=== PATIENT | female | born 1960 | race African-American/Black ===

== ENCOUNTER → 2016-08-04 | Outpatient (CLI) | payer BC ==
[~2016-08-04] MED LIST: AMOXICILLIN500 M1 PO; BAYER ASPIRIN325 M1 PO; HCTZ PO; METOPROLOL SUC100 MG PO; PERCOCET 5/321 UDTAB PO; PHENERGAN25 M1 PO; TOPROL XL PO
--- NOTE | ~2016-08-04 | US77 ---
[facility] A Service [facility] RADIOLOGY TEXT RESULTS PATIENT: FREDRICK ROUSSEAU LOCATION: [place] : [birth year] UNIT #: [id number] AGE: [address]: Luisa Pires APRN SEX: F ORDER DR: [id number] [address] [address] [id number] O MR#: [id number] Acc #: [id number] NAME: FREDRICK ROUSSEAU : 1960 SEX: F STUDY DATE/TIME: 08/04/2016 11:10 UNIT: [facility] ROOM: STUDY DESCRIPTION: US Kidney Bilateral Complete Attending Physician: Luisa Pires A.P.R.N. Referring Physician: Luisa Pires A.P.R.N. Ordering Physician: Luisa Pires A.P.R.N. Primary Care Physician: Pritesh Reyes M.D. MEDICAL IMAGING REPORT This report is preliminary unless electronic signature is present. EXAM Bilateral renal ultrasound INDICATIONS Benign essential hypertension. Lesions in kidneys demonstrated on an outside MRI. TECHNIQUE Lo-scale imaging of the kidneys and urinary bladder was performed. COMPARISON No comparisons. FINDINGS Right kidney measures 11.7 cm in length. The left kidney measures 10 cm in length. Renal cortical thickness and echogenicity is normal. There are cysts within both kidneys. There appears to be a thin septation in the largest cyst on the right. This cyst measures about 4.3 cm in greatest dimension. There are also cysts within the left kidney. The largest on the left measures about 2.8 cm in greatest dimension and also contains a septation. No hydronephrosis. Survey view of the urinary bladder is unremarkable. IMPRESSION Bilateral renal cysts. Dictated by... Александр Ray M.D. THIS IS AN ELECTRONICALLY VERIFIED REPORT Александр Ray M.D. at 08/04/2016 9:52 PM ARS/cs [facility] A Service of [facility] RADIOLOGY TEXT RESULTS PATIENT: FREDRICK ROUSSEAU LOCATION: [facility] ACC #: [id number] : [birth year] UNIT #: [id number] AGE: [address]: Luisa Pires APRN SEX: F ORDER DR: TD: 08/04/2016 21:14 JOB #: [id number] MEDICAL IMAGING REPORT Page 1 of 1
== END | disposition home or self-care (01) ==
LOC: SGUS 10:20
DX: I10 Essential (primary) hypertension (principal); N28.1 Cyst of kidney, acquired
CPT/HCPCS: 76775

== ENCOUNTER 2016-10-27 18:10 | Inpatient (IN) | payer BC ==
--- NOTE | ~2016-10-27 | CO ---
Unit #: [id number] #: [id number] Patient: FREDRICK ROUSSEAU [id number] [facility] [address] [facility]. [place], [place] [address] [id number] I MR#: [id number] NAME: FREDRICK ROUSSEAU ROOM: 450 Age: 56 Sex: F Admission Date: 10/28/2016 : 1960 Attending Physician: Louie Mcgill M.D. Primary Care Physician: Pritesh Reyes M.D. Consultation Date: 10/28/2016 CONSULTATION REPORT CHIEF COMPLAINT Left ankle pain and swelling. HISTORY OF PRESENT ILLNESS Ms. Rousseau is a very pleasant 56-year-old female, who was stepping out of her trailer, twisted her ankle, had immediate pain and deformity, was unable to bear weight. She presented to [facility] Emergency Room where x-rays were obtained. She was diagnosed with a left trimalleolar ankle fracture dislocation. She had a closed reduction performed. It was splinted and she was transferred to [facility] for definitive management. PAST MEDICAL HISTORY Hypertension. HOME MEDICATIONS Toprol. ALLERGIES No known drug allergies. SOCIAL HISTORY She drinks occasional alcohol. Denies smoking or illicit drug use. FAMILY HISTORY Reviewed and noncontributory. PAST SURGICAL HISTORY Negative. REVIEW OF SYSTEMS All 12 systems are reviewed and were negative with the exception of left ankle pain and swelling. PHYSICAL EXAMINATION GENERAL: Shows a pleasant -[place] female who appears stated age. She is in no acute distress. EXTREMITIES: Left lower extremity is splinted. HEENT: Normocephalic and atraumatic. Extraocular movements intact. Trachea is midline. HEART: Regular rate and rhythm. ABDOMEN: Soft, nontender, nondistended. EXTREMITIES: Demonstrate left lower extremity splint is well fitting. She is able to wiggle her toes but with some pain. She has brisk Unit #: [id number] #: [id number] Patient: FREDRICK ROUSSEAU capillary refill distally. Toes are warm to touch. Unable to visualize the skin of the ankles secondary to the splint. DIAGNOSTIC STUDIES IMAGING: Review of x-rays: Both pre and post reduction images were reviewed which shows a left trimalleolar ankle fracture that involves a [place] C lateral malleolus ankle fracture. The mortise is still subluxed. She also has a fracture of the anterior aspect of the tibia at the connection point of the anterior talofibular ligament. Also, she has a small posterior malleolar ankle fracture. The medial malleolus is intact. IMPRESSION Left trimalleolar ankle fracture dislocation, status post closed reduction by emergency room. PLAN I have recommended open induction internal fixation. Risks and benefits were discussed in detail. Risks of infection, deep venous thrombosis, pulmonary embolism, , fracture malunion/nonunion, painful hardware, need for hardware removal, persistent pain. She understood and wished to proceed. She understood that medicine is not exact science and the outcome may be less than desirable. She voiced understanding and she will sign the consent as documentation of our discussion. All questions were answered to her satisfaction. Will proceed with surgery later this morning as discussed for open reduction internal fixation of left ankle. Dictated by... Latoya Melton/josephine TD: 10/29/2016 12:44 JOB #: [id number] CONSULTATION REPORT Page 1 of 1 X Geovanny Warren MD X CONSULTATION REPORT
--- NOTE | ~2016-10-27 | CR20 ---
[facility] A Service of [facility] & [facility] RADIOLOGY TEXT RESULTS PATIENT: FREDRICK ROUSSEAU LOCATION: [place] [address] : [birth year] UNIT #: [id number] AGE: [address]: Louie Mcgill MD SEX: F ORDER DR: [id number] [address] [address] [id number] I MR#: [id number] Acc #: [id number] NAME: FREDRICK ROUSSEAU : 1960 SEX: F STUDY DATE/TIME: 10/27/2016 20:23 UNIT: SEDOF ROOM: [facility] STUDY DESCRIPTION: CR Ankle Min 3 Views Lt Attending Physician: Barbara Hernandez M.D. Ordering Physician: Tyrone Naidu M.D. Primary Care Physician: Pritesh Reyes M.D. MEDICAL IMAGING REPORT This report is preliminary unless electronic signature is present. EXAM 3 views of the left ankle COMPARISON 3 views of the left ankle on the same date at 06:30 p.m. INDICATIONS 56-year-old female status post closed reduction of right ankle fracture. Patient has right ankle pain after stepping off of a trailer today. FINDINGS Detailed evaluation of bony structures is limited by overlapping cast material. Mildly comminuted fracture of the distal fibula is again noted with mild lateral displacement of the distal fragment. There is also widening of the tibiofibular syndesmosis and the ankle mortise, suggesting an unstable injury. There is a questionable avulsion fracture from the lateral aspect of the distal tibia at the syndesmosis. There is no dislocation. IMPRESSION Improved alignment of comminuted distal fibular fracture post closed reduction. There is still minimal lateral displacement of the distal fibula, and there is persistent ankle mortise widening that has improved from earlier today, and there is abnormal diastases at the tibiofibular syndesmosis with questionable avulsed fracture fragment from the distal tibia at the level of the syndesmosis. This reflects unstable injury. Orthopedic consultation is recommended. No ankle dislocation. Dictated by... Martínez Brice M.D. THIS IS AN ELECTRONICALLY VERIFIED REPORT [facility] A Service of [facility] & [facility] RADIOLOGY TEXT RESULTS PATIENT: FREDRICK ROUSSEAU LOCATION: [facility] 450-01 : [birth year] UNIT #: [id number] AGE: [address]: Louie Mcgill MD SEX: F ORDER DR: Martínez Brice M.D. at 11/02/2016 10:29 AM GILMAR/paula TD: 10/28/2016 11:37 JOB #: [id number] MEDICAL IMAGING REPORT Page 1 of 1
--- NOTE | ~2016-10-27 | DS ---
Unit #: [id number] #: [id number] Patient: FREDRICK ROUSSEAU [id number] [address] [address] [id number] I MR#: [id number] NAME: FREDRICK ROUSSEAU ROOM: [facility] Age: 56 Sex: F Admission Date: 10/27/2016 : 1960 Discharge Date: 10/29/2016 Attending Physician: Louie Mcgill M.D. Primary Care Physician: Pritesh Reyes M.D. DISCHARGE SUMMARY HISTORY OF PRESENT ILLNESS Please H and P for details, initial part of hospital course. Consultation was placed to orthopedic services. Dr. Quijano saw and evaluated patient. Patient was taken to the OR. Please see their operative note for complete details. The patient underwent open reduction internal fixation of left trimalleolar ankle fracture. There were no acute complications which was noted. Postoperatively, she has otherwise done well. She will be given a prescription for Percocet 5/325 one to two tablets p.o. q.4 p.r.n. #56. She will also be instructed to resume her blood pressure medication at time of discharge. She will follow up with Dr. Warren in one to two weeks. Recommendation was also made for aspirin 325 mg p.o. daily. FINAL DISCHARGE DIAGNOSES 1. Left ankle fracture, status post open reduction internal fixation. 2. Hypertension. DISCHARGE MEDICATIONS 1. Percocet 5/325 one to two tablets p.o. q.4 p.r.n. 2. Toprol XL 50 mg p.o. daily. 3. Aspirin 325 mg p.o. daily. DISCHARGE CONDITION Stable. DISCHARGE DISPOSITION Home. FOLLOWUP Followup orthopedic services in one to two weeks. Dictated by... Latoya Burgess/josephine TD: 10/31/2016 15:55 JOB #: [id number] Unit #: [id number] #: [id number] Patient: FREDRICK ROUSSEAU DISCHARGE SUMMARY Page 1 of 1 X Louie Mcgill MD X DISCHARGE SUMMARY
--- NOTE | ~2016-10-27 | DS ---
Unit #: [id number] #: [id number] Patient: FREDRICK ROUSSEAU [id number] [address] [address] [id number] I MR#: [id number] NAME: FREDRICK ROUSSEAU ROOM: 450 Age: 56 Sex: F Admission Date: 10/28/2016 : 1960 Discharge Date: 10/29/2016 Attending Physician: Louie Mcgill M.D. Primary Care Physician: Pritesh Reyes M.D. DISCHARGE SUMMARY DISCHARGE DIAGNOSIS Left trimalleolar ankle fracture dislocation. PROCEDURES Open reduction and internal fixation of left ankle fracture on 10/28/2016. INDICATION FOR ADMISSION Miss Rousseau is a very pleasant 56-year-old female who has sustained a left trimalleolar ankle fracture dislocation while stepping out of her trailer. She was initially seen at [facility] where a closed reduction was performed. She was transferred to [facility] for further workup and treatment. She underwent open reduction and internal fixation on 10/28/[address] Geovanny Warren. She tolerated the procedure well. Physical Therapy was consulted. Pending clearance from Physical Therapy today she will be discharged home. DISCHARGE INSTRUCTIONS 1. Nonweightbearing left lower extremity. 2. Use assistive device as needed. 3. Elevate the extremity. 4. Keep the extremity clean, dry and intact. 5. A prescription for Percocet 5 was given for pain control. 6. She will take aspirin daily for DVT prophylaxis. 7. I will see her in the office in 10 to 14 days for a routine followup. 8. X-rays to be obtained out of the splint before being seen on followup. Dictated by... Latoya Melton/dena TD: 10/29/2016 18:30 JOB #: [id number] Unit #: [id number] #: [id number] Patient: FREDRICK ROUSSEAU DISCHARGE SUMMARY Page 1 of 1 X Geovanny Warren MD DISCHARGE SUMMARY
--- NOTE | ~2016-10-27 | CR252 ---
[facility] A Service of [facility] & [facility] RADIOLOGY TEXT RESULTS PATIENT: FREDRICK ROUSSEAU LOCATION: [place] [address] : [birth year] UNIT #: [id number] AGE: [address]: Louie Mcgill MD SEX: F ORDER DR: [id number] [address] [address] [id number] I MR#: [id number] Acc #: [id number] NAME: FREDRICK ROUSSEAU : 1960 SEX: F STUDY DATE/TIME: 10/27/2016 20:20 UNIT: SEDOF ROOM: [facility] STUDY DESCRIPTION: CR Tibia and Fibula 2 Views Lt Attending Physician: Barbara Hernandez M.D. Ordering Physician: Tyrone Naidu M.D. Primary Care Physician: Pritesh Reyes M.D. MEDICAL IMAGING REPORT This report is preliminary unless electronic signature is present. EXAM Left tibia-fibula 2 views INDICATIONS Status post reduction of ankle fracture. COMPARISON Comparison with earlier today. FINDINGS Postreduction film demonstrates improved anatomic alignment of the fibular fracture on this AP view. There are no additional fractures involving the fibula. The ankle joint on the AP view also appears more anatomic. IMPRESSION Postreduction film demonstrates better anatomic alignment of the fibular fracture on the AP view. Please refer to separately dictated postreduction ankle radiograph for complete details. Dictated by... Александр Ray M.D. THIS IS AN ELECTRONICALLY VERIFIED REPORT Александр Ray M.D. at 11/01/2016 1:32 PM Selam TD: 10/28/2016 11:41 JOB #: [id number] MEDICAL IMAGING REPORT Page 1 of 1
--- NOTE | ~2016-10-27 | CR20 ---
[facility] A Service of [facility] & [facility] RADIOLOGY TEXT RESULTS PATIENT: FREDRICK ROUSSEAU LOCATION: [facility] 450-01 : [birth year] UNIT #: [id number] AGE: [address]: Louie Mcgill MD SEX: F ORDER DR: [id number] [facility] [address] [facility]. [place], [place] [address] [id number] I MR#: [id number] Acc #: [id number] NAME: FREDRICK ROUSSEAU : 1960 SEX: F STUDY DATE/TIME: 10/28/2016 12:17 UNIT: [facility] ROOM: [facility] STUDY DESCRIPTION: CR Ankle Min 3 Views Lt Attending Physician: Louie Mcgill M.D. Ordering Physician: Geovanny Warren M.D. Primary Care Physician: Pritesh Reyes M.D. MEDICAL IMAGING REPORT This report is preliminary unless electronic signature is present REVISED REPORT EXAM C-arm fluoroscopy with 3 permanent images of the left ankle, 10/28/2016. HISTORY ORIF left ankle fracture. FINDINGS C-arm fluoroscopy was provided for use in the operating room. Three spot film radiographs of the left ankle were obtained in the anterior and lateral projections documenting placement of surgical plate and screws across the distal fibular fracture. The bones appear in anatomic alignment. 27 seconds of fluoroscopy time was utilized. ORDERING PHYSICIAN REVISED Dictated by... Gilbert Felix M.D. THIS IS AN ELECTRONICALLY VERIFIED REPORT Gilbert Felix M.D. at 11/03/2016 8:04 AM JOSE/ascencion TD: 10/29/2016 00:08 JOB #: [id number] MEDICAL IMAGING REPORT Page 1 of 1 COPY
--- NOTE | ~2016-10-27 | CR20 ---
[facility] A Service [facility] RADIOLOGY TEXT RESULTS PATIENT: FREDRICK ROUSSEAU LOCATION: [place] [address] : [birth year] UNIT #: [id number] AGE: [address]: Louie Mcgill MD SEX: F ORDER DR: [id number] [address] [address] [id number] I MR#: [id number] Acc #: [id number] NAME: FREDRICK ROUSSEAU : 1960 SEX: F STUDY DATE/TIME: 10/27/2016 18:30 UNIT: SEDOF ROOM: [facility] STUDY DESCRIPTION: CR Ankle Min 3 Views Lt Attending Physician: Barbara Hernandez M.D. Ordering Physician: Keny Cadet P.A.-C. Primary Care Physician: Pritesh Reyes M.D. MEDICAL IMAGING REPORT This report is preliminary unless electronic signature is present. EXAM Left ankle, 3 views. INDICATION Left ankle pain today after injuring it. COMPARISON No comparisons. FINDINGS Extensive fracture dislocation of the ankle. There is a comminuted fracture of the distal fibula. There is a posterior and lateral dislocation of the talus with respect to the tibia. The fibular fracture is displaced posteriorly. There is a displaced fracture of the medial malleolus of the tibia. IMPRESSION Complex fracture dislocation of the ankle as described above. Dictated by... Александр Ray M.D. THIS IS AN ELECTRONICALLY VERIFIED REPORT Александр Ray M.D. at 11/01/2016 1:32 PM AIDE/ascencion TD: 10/28/2016 05:31 JOB #: [id number] MEDICAL IMAGING REPORT [facility] A Service [facility] RADIOLOGY TEXT RESULTS PATIENT: FREDRICK ROUSSEAU LOCATION: [place] [address] : [birth year] UNIT #: [id number] AGE: [address]: Louie Mcgill MD SEX: F ORDER DR: Page 1 of 1
--- NOTE | ~2016-10-27 | CR169 ---
[facility] A Service of [facility] & [facility] RADIOLOGY TEXT RESULTS PATIENT: FREDRICK ROUSSEAU LOCATION: [place] [address] : [birth year] UNIT #: [id number] AGE: [address]: Louie Mcgill MD SEX: F ORDER DR: [id number] [address] [address] [id number] I MR#: [id number] Acc #: [id number] NAME: FREDRICK ROUSSEAU : 1960 SEX: F STUDY DATE/TIME: 10/27/2016 20:26 UNIT: SEDOF ROOM: [facility] STUDY DESCRIPTION: CR Knee 2 Views Lt Attending Physician: Barbara Hernandez M.D. Ordering Physician: Tyrone Naidu M.D. Primary Care Physician: Pritesh Reyes M.D. MEDICAL IMAGING REPORT This report is preliminary unless electronic signature is present. EXAM Left knee, 2 views INDICATIONS Minus left knee pain today. No comparisons are available. FINDINGS There is no joint effusion. No evidence of fracture or dislocation. IMPRESSION No acute findings in the knee Dictated by... Александр Ray M.D. THIS IS AN ELECTRONICALLY VERIFIED REPORT Александр Ray M.D. at 11/01/2016 1:32 PM AIDE/breana TD: 10/28/2016 11:38 JOB #: [id number] MEDICAL IMAGING REPORT Page 1 of 1
--- NOTE | ~2016-10-27 | HP ---
Unit #: [id number] #: [id number] Patient: FREDRICK ROUSSEAU [id number] [address] [place], [place] [address] [id number] I MR#: [id number] NAME: FREDRICK ROUSSEAU ROOM: 450 Age: 56 Sex: F Admission Date: 10/27/2016 : 1960 Attending Physician: Louie Mcgill M.D. Primary Care Physician: Pritesh Reyes M.D. HISTORY AND PHYSICAL REASON FOR ADMISSION Left trimalleolar ankle fracture with subsequent dislocation. HISTORY OF PRESENT ILLNESS Patient is a very pleasant 56-year-old female relatively healthy with a prior history of only hypertension, who apparently stepped out of her home, fell down awkwardly. She noted an obvious deformity of her left ankle, was seen and evaluated in the emergency room, noted to have aforementioned trimalleolar fracture and thus was admitted for the same. PAST MEDICAL HISTORY Hypertension. PAST SURGICAL HISTORY Hysterectomy. HOME MEDICATIONS Toprol. SOCIAL HISTORY Occasional alcohol use. No illicit drug use. No tobacco use. FAMILY HISTORY Reviewed, noncontributory and nonpertinent. REVIEW OF SYSTEMS Please see HPI. A 12-point otherwise negative for those positive and noted in the HPI. PHYSICAL EXAMINATION VITAL SIGNS: Temperature on admission 98.4, pulse 63, respiratory rate 16, blood pressure 171/101. GENERAL APPEARANCE: The patient appears well, alert, and oriented. No acute distress. HEENT: Head: Atraumatic, normocephalic. Ears: Tympanic membranes did not reveal erythema or injection. NECK: Supple. CARDIOVASCULAR: S1, S2 without murmur. RESPIRATORY: Clear. GASTROINTESTINAL/ABDOMEN: Nontender, nondistended. EXTREMITIES: Lower extremities have no history of lower extremity edema. Left lower extremity does reveal an obvious deformity over the left ankle. NEUROLOGIC: Patient is intact. Pulse is positive. Unit #: [id number] #: [id number] Patient: FREDRICK ROUSSEAU DIAGNOSTIC STUDIES LABORATORY: Initial laboratory studies did yield CMP relatively unremarkable. GFR of 59. CBC shows a hemoglobin of 13. IMAGING: X-ray performed in the emergency room shows a complex fracture dislocation of the ankle. INITIAL ADMISSION DIAGNOSES 1. Left ankle fracture. 2. History of hypertension. PLAN Admission, orthopedic consultation. Further management per ortho services. We will continue to manage the patient both preoperatively as well as postoperatively and follow her blood pressure as well. All questions have been answered. Appropriate symptom management will be achieved with appropriate pain control. Dictated by Latoya Burgess/josephine TD: 10/28/2016 11:14 JOB #: [id number] HISTORY AND PHYSICAL Page 1 of 1 X Louie Mcgill MD X HISTORY AND PHYSICAL
--- NOTE | ~2016-10-27 | OR ---
Unit #: [id number] #: [id number] Patient: FREDRICK ROUSSEAU [id number] [address] [address] [id number] I MR#: [id number] NAME: FREDRICK ROUSSEAU ROOM: [facility] Date of Procedure: 10/28/2016 Admission Date: 10/28/2016 Surgeon: Geovanny Warren M.D. : 1960 Attending Physician: Louie Mcgill M.D. Primary Care Physician: Pritesh Reyes M.D. OPERATIVE REPORT PREOPERATIVE DIAGNOSIS Left trimalleolar ankle fracture dislocation. POSTOPERATIVE DIAGNOSIS Left trimalleolar ankle fracture dislocation. PROCEDURE PERFORMED Open reduction and internal fixation of left trimalleolar ankle fracture. ASSISTANTS None. ANESTHESIA General. COMPLICATIONS None. INDICATIONS FOR PROCEDURE Ms. Rousseau is a pleasant 56-year-old female, who is stepping out of her trailer, twisted her ankle, and sustained a left trauma ankle fracture dislocation. [facility] where closed reduction was performed and she was transferred to [facility] for further workup and treatment. Risks, benefits of open reduction and internal fixation were made, risk of infection, , malunion, nonunion, painful hardware, need for hardware removal. Questions answered to her satisfaction. Informed consent was obtained and placed on chart. DESCRIPTION OF PROCEDURE After the patient was identified in the preoperative holding area, the operative site was marked in front of the patient. She was brought to the operative room for surgery and placed supine in the operating room table. General endotracheal anesthesia was placed uneventfully. A nonsterile tourniquet was placed in the upper left thigh. Bump was placed underneath the left pelvis. Left lower extremity was prepped and draped in usual sterile fashion. Esmarch was used to exsanguinate the limb. The tourniquet was inflated to 250 mmHg. Then, making lateral based incision over the distal fibula was used. With #10 blade scalpel, the full-thickness incision was made down to the bone. The periosteum was elevated off the fracture site. The fracture reduced with a lobster claw bone reduction clamp. Then, a lag screw was placed anterior to Unit #: [id number] #: [id number] Patient: FREDRICK ROUSSEAU posteriorly. 3.5 drill was drilled through the first cortex followed by 2.5 drill for the posterior cortex and then a 20 mm x 3.5 cortical screw was then placed, which held the fracture together nicely. Then using Patrick distal fibular locking plate was applied in screws were filled in standard AO fashion, locking screws distally and nonlocking proximally. Then because the ankle had been very unstable, a large [id number] bone reduction clamp was then placed and used to tighten up the ankle mortise. Then using a [employer] ZipTight syndesmosis repair system was then used and compressed laterally and over tied this. Final C-arm images were obtained. AP, lateral, and oblique views showed good fracture reduction and hardware placement. The posterior malleolar fragment was less than 30% that was not surgically repaired though is anatomically reduced. The 0 Vicryl was used to close the periosteal layer, 2-0 Vicryl to close the dermis, and 3-0 nylon to close the skin. Sterile dressing was applied. Tourniquet was then dropped. She was placed in a fiberglass splint. She was awakened from anesthesia and returned to recovery room in stable condition. No intraoperative complications. Dictated by... Latoya Melton/spring TD: 10/29/2016 05:31 JOB #: [id number] OPERATIVE REPORT Page 1 of 1 X Geovanny Warren MD X PROCEDURE OPERATIVE NOTE
--- NOTE | ~2016-10-27 | EKG ---
PATIENT: FREDRICK ROUSSEAU UNIT #: [id number] Ventricular Rate: 49 BPM Atrial Rate: 49 BPM P-R Interval: 150 ms QRS Duration: 76 ms Q-T Interval: 472 ms QTC Calculation(Bezet): 426 ms P [place]: 52 degrees Calculated R [place]: -12 degrees Calculated T [place]: -12 degrees Diagnosis Line: Marked sinus bradycardia Diagnosis Line: Minimal voltage criteria for LVH, may be normal Diagnosis Line: variant Diagnosis Line: Possible Anterior infarct , age undetermined Diagnosis Line: Abnormal ECG Diagnosis Line: No previous ECGs available Diagnosis Line: Confirmed by MAITE LOYA MD ([id number]) on Diagnosis Line: 10/30/2016 11:03:17 AM INTERPRETING MD: SHALINI PUGH
[~2016-10-27 18:10] MED LIST changes: -BAYER ASPIRIN325 M1 PO; -METOPROLOL SUC100 MG PO; -PERCOCET 5/321 UDTAB PO
[2016-10-27 19:24] LABS: BASOPHIL% 0.6 % (0-2.5); EOSINOPHIL# 0.1 X10e3 (0-0.7); EOSINOPHIL% 2.3 % (0.0-7.0); HEMATOCRIT 38.7 % (35.0-45.0); LYMPHOCYTE# 1.2 X10e3 (1.0-3.5); LYMPHOCYTE% 22.9 % (17.0-45.0); MEAN CELL VOLUME 84.6 FL (83-96); MEAN CORPUSCULAR HEMOGLOBIN 28.3 PG (28-34); MEAN CORPUSCULAR HGB CONC 33.5 g/dL (30-36); MEAN PLATELET VOLUME 9.4 FL (6.5-11.5); MONOCYTE# 0.5 X10e3 (0-1.0); NEUTROPHIL# 3.5 X10e3 (1.5-7.1); NEUTROPHIL% 65.2 % (40-75); PLATELET COUNT 230 X10e3 (140-420); RED BLOOD COUNT 4.58 X10e (3.90-5.30); RED CELL DISTRIBUTION WIDTH 12.9 % (11.0-15.5); WHITE BLOOD COUNT 5.4 X10e3 (4.0-10.5)
[2016-10-27 19:26] LABS: DIFF IND NO
[2016-10-27 19:40] LABS: ALBUMIN SERUM 4.2 g/dL (3.5-5.0); BILIRUBIN,TOTAL 0.4 mg/dL (0.2-2.0); CALCIUM SERUM 9.3 mg/dL (8.4-10.2); CREATININE SERUM 1.2 mg/dL (0.6-1.4); GLOM FILT RATE Estimated 59.3 mL/min (>60); POTASSIUM 3.6 mmol/L (3.5-5.1); PROTEIN TOTAL SERUM 7.6 g/dL (6.0-8.3)
[2016-10-27 20:20] LABS: POC - CKMB 1.3 ng/mL (0.0-7.9); POC - TROPONIN <0.05 ng/mL (<=0.05)
[2016-10-28] MEDS ORDERED: METOPROLOL SUC100 MG PO (01:54)
[2016-10-29] MEDS ORDERED: PERCOCET 5/321 UDTAB PO (11:11)
[2016-10-29] MEDS ORDERED: BAYER ASPIRIN325 M1 PO (11:15)
== END 2016-10-29 13:20 | disposition home or self-care (01) | DRG 494 ==
LOC: SED 18:10 → SEDOF 19:35 → C4B 10-28 00:38 → SEDOF 10-28 00:38 → C4B 10-28 02:05 → SEDOF 10-28 02:05 → C4B 10-28 05:11
PROVIDERS: Emergency Medicine; Internal Medicine; Specialist
PROC: 0QSK04Z Reposition Left Fibula with Internal Fixation Device, Open Approach (ICD-10-PCS; 2016-10-28)
PROC: 0QSH04Z Reposition Left Tibia with Internal Fixation Device, Open Approach (ICD-10-PCS; 2016-10-28)
PROC: 0QSHXZZ Reposition Left Tibia, External Approach (ICD-10-PCS; principal; 2016-10-28 10:00)
DX: S82.852A Displaced trimalleolar fracture of left lower leg, initial encounter for closed fracture (principal); I10 Essential (primary) hypertension; W18.30XA Fall on same level, unspecified, initial encounter; Y92.008 Other place in unspecified non-institutional (private) residence as the place of occurrence of the external cause; Z90.710 Acquired absence of both cervix and uterus
CPT/HCPCS: 73560; 73590; 73610; 76000; 80053; 82553; 84484; 85025; 93005; 96361; 96374; 96375; 97162; 99285; C1713; G8978-GP; G8979-GP; G8980-GP; J0690; J0735; J1100; J1170; J2250; J2270; J2405; J2795; J3010